=== PATIENT | female | born 1940 | race Caucasian/White ===

== ENCOUNTER 2018-03-25 21:25 | Emergency (ER) | payer MEDICARE ==
[~2018-03-25] VITALS: Ht 165.1 cm; Wt 112.4 kg
[~2018-03-25 21:25] MED LIST: AMLODIPINE BESY10 MG PO; ASPIRIN EC81 MG PO; ATENOLOL-CHLOR1 EAC1 PO; CEFPODOXIME PR200 MG PO; CLONIDINE HCL0.1 MG PO; DILTIAZEM 24HR120 MG PO; ELIQUIS5 MG PO; HUMULIN R100 UNIT/1 INJ; HYDROCHLOROTHIA25 MG PO; LANTUS SOL100 UNIT/1 SUB-Q; LEVOFLOXACIN500 MG PO; LEVOTHYROXINE88 MCG PO; LOSARTAN POTASS25 MG PO; METFORMIN HCL1000 MG PO; METFORMIN HCL500 MG PO; METOPROLOL SUCC25 MG PO; METOPROLOL TART50 MG PO; NOVOLOG FL100 UNIT/1 SUB-Q; OMEPRAZOLE20 MG PO
--- NOTE | 2018-03-26 19:25 | EKG ---
[facility] [address] [facility] [place] [address] Signed Atrial fibrillation with rapid ventricular response Septal infarct (cited on or before 04-AUG-2016) ST \T\ T wave abnormality, consider lateral ischemia Abnormal ECG When compared with ECG of 04-AUG-2016 12:42, Inverted T waves have replaced nonspecific T wave abnormality in Lateral leads Confirmed by HEMA ESPINOZA MD ([id number]) on 03/26/2018 7:25:24 PM Electronically Signed By: HEMA ESPINOZA MD 03/26/18 1925 PATIENT NAME: KAREN LAZARO Electrocardiogram DATE OF : 42 PHYSICIAN: HEMA ESPINOZA MD REPORT #: [id number] REPORT IS CONFIDENTIAL AND NOT TO BE RELEASED WITHOUT AUTHORIZATION
--- NOTE | 2018-03-26 19:25 | EKG ---
[facility] [address] [place] [address] Signed Normal sinus rhythm Possible Left atrial enlargement Anteroseptal infarct (cited on or before 04-AUG-2016) T wave abnormality, consider lateral ischemia Abnormal ECG When compared with ECG of 25-MAR-2018 21:29, (Unconfirmed) Sinus rhythm has replaced Atrial fibrillation Vent. rate has decreased BY [address] no longer depressed in Lateral leads Confirmed by HEMA ESPINOZA MD ([id number]) on 03/26/2018 7:25:37 PM Electronically Signed By: HEMA ESPINOZA MD 03/26/18 1925 PATIENT NAME: KAREN LAZARO Electrocardiogram DATE OF : 42 PHYSICIAN: HEMA ESPINOZA MD REPORT #: [id number] REPORT IS CONFIDENTIAL AND NOT TO BE RELEASED WITHOUT AUTHORIZATION
== END 2018-03-25 23:45 | disposition home or self-care (01) ==
LOC: ED 21:25
DX: I48.0 Paroxysmal atrial fibrillation (principal); E11.9 Type 2 diabetes mellitus without complications; I10 Essential (primary) hypertension; Z88.8 Allergy status to other drugs, medicaments and biological substances; Z88.6 Allergy status to analgesic agent; Z79.4 Long term (current) use of insulin; Z79.899 Other long term (current) drug therapy; Z91.14 Patient's other noncompliance with medication regimen
CPT/HCPCS: 36415; 71045; 80053; 84484; 85025; 93005; 93010; 96374; 99291

== ENCOUNTER 2019-03-09 12:23 | Emergency (ER) | payer MEDICARE ==
[~2019-03-09] VITALS: Ht 165.1 cm; Wt 109.0 kg
[2019-03-09] MEDS ORDERED: ELIQUIS5 MG PO (18:12)
[2019-03-09] MEDS ORDERED: TOPROL XL50 MG PO (18:12)
--- NOTE | 2019-03-10 16:33 | EKG ---
[facility] [address] [facility] [place] [address] Signed Atrial fibrillation with rapid ventricular response Septal infarct (cited on or before 04-AUG-2016) Abnormal ECG When compared with ECG of 25-MAR-2018 22:38, Atrial fibrillation has replaced Sinus rhythm Vent. rate has increased BY 50 BPM Questionable change in initial forces of Anterior leads ST now depressed in Lateral leads Confirmed by ARMIN ROJAS DO ([id number]) on 03/10/2019 4:33:10 PM Electronically Signed By: ARMIN ROJAS DO 03/10/19 1633 PATIENT NAME: KAREN LAZARO Electrocardiogram DATE OF : 42 PHYSICIAN: ARMIN ROJAS DO REPORT #: [id number] REPORT IS CONFIDENTIAL AND NOT TO BE RELEASED WITHOUT AUTHORIZATION
== END 2019-03-09 18:20 | disposition home or self-care (01) ==
LOC: ED 12:23
DX: I48.91 Unspecified atrial fibrillation (principal); E11.9 Type 2 diabetes mellitus without complications; I10 Essential (primary) hypertension; E03.9 Hypothyroidism, unspecified; Z88.8 Allergy status to other drugs, medicaments and biological substances; Z88.6 Allergy status to analgesic agent; Z79.899 Other long term (current) drug therapy; Z79.4 Long term (current) use of insulin
CPT/HCPCS: 71045; 80053; 83735; 83880; 84443; 84484; 85025; 93005; 93010; 96374; 96376; 99285-25; J2704

== ENCOUNTER 2019-04-20 12:13 | Observation (INO) | payer MEDICARE ==
[~2019-04-20] VITALS: Ht 165.1 cm; Wt 109.0 kg
[~2019-04-20 12:13] MED LIST changes: +COZAAR100 MG PO; +GLUCOPHAGE500 MG PO; -METFORMIN HCL1000 MG PO; +TOPROL XL50 MG PO
--- NOTE | 2019-04-20 16:19 | EKG ---
[facility] [address] [place] [address] Signed Sinus rhythm with premature atrial complexes Otherwise normal ECG When compared with ECG of 09-MAR-2019 12:28, Sinus rhythm has replaced Atrial fibrillation Vent. rate has decreased BY 63 BPM Confirmed by CASIMIRO DOWNING MD ([id number]) on 04/20/2019 4:19:16 PM Electronically Signed By: CASIMIRO DOWNING MD 04/20/19 1619 PATIENT NAME: KAREN LAZARO Electrocardiogram DATE OF : 42 PHYSICIAN: CASIMIRO DOWNING MD REPORT #: [id number] REPORT IS CONFIDENTIAL AND NOT TO BE RELEASED WITHOUT AUTHORIZATION
--- NOTE | 2019-04-20 16:34 | NUR ---
NEW ADMIT TO THE FLOOR. PT AWAKE, ALERT AND ORIENTED X3. HOB ELEVATED. PT'S VS ARE STABLE. PT IS ON 2L OXYGEN, SAT LEVEL 95%. PT DENIES CHEST PAIN AND SOB. TELE PLACED. PT DENIES PAIN. NEURO CHECK COMPLETED, NO NOTABLE DEFICITS. PT REPORTS FULL SENSATION TO EXT. PT'S SPEECH IS APPROPRIATE. ORIENTED PT TO ROOM AND CALL LIGHT. NO NEEDS AT THIS TIME. EDUCATION PROVIDED REGARDING SAFETY AND PLAN OF CARE. PT RECEPTIVE TO PLAN OF CARE AT THIS TIME.
[2019-04-20] MEDS ORDERED: TOPROL XL25 MG PO (17:05)
[2019-04-20] MEDS ORDERED: NOVOLIN 70100 UNIT/1 SUB-Q (17:40)
--- NOTE | 2019-04-20 17:43 | NUR ---
Medications reconciled using pharmacy records and patient interview. Her medications have had several changes recently.
--- NOTE | 2019-04-20 17:56 | NUR ---
PT A&OX3. NEURO CHECKS; NO NOTABLE DEFICITS. NAUSEA AND DIZZINESS IMPROVED. NOT YET OUT OF BED. AMBULATE AD GENIE ORDER. BS CHECKS. TOLERATING 60G CARBS. CALLS APPROP.
--- NOTE | 2019-04-20 20:00 | NUR ---
PATIENT IS SITTING UP IN THE CHAIR, NO C/O PAIN, CALL LIGHT IN REACH, PATIENT WATCHING TV.
--- NOTE | 2019-04-20 22:00 | NUR ---
PATIENT IN BED WATCING TV.
--- NOTE | 2019-04-20 23:37 | NUR ---
PATIENT RESTING QUIETLY ON LEFT SIDE, RESPIRATIONS REGULAR AND EVEN AT 18, EYES CLOSED.
--- NOTE | 2019-04-21 00:46 | NUR ---
PATIENT RESTING SUPINE, EYES CLOSED, RESPIRATIONS REGULAR AND EVEN AT 16, CALL LIGHT IN REACH.
--- NOTE | 2019-04-21 02:50 | NUR ---
PATIENT RESTING QUIETLY SUPINE RESPIRATIONS REGULAR AND EVEN, EYES CLOSED, CALL LIGHT IN REACH.
--- NOTE | 2019-04-21 05:00 | NUR ---
ONCE PATIENT GOT INTO BED FOR THE NIGHT SHE HAS MOSTLY RESTED ALL NIGHT EYES CLOSED RESPIRATIONS REGULAR AND EVEN. PATTIENT HAD SAID SHE FEELLS PRETTY MUCH BACK TO HERSELF. LAB DRAAWING BLOOD AT THIS TIME.
--- NOTE | 2019-04-21 08:15 | NUR ---
PT RESTING SUPINE IN BED ALERT TO VOICE, VS'S TAKEN AND AM MEDS ADMINISTERED, ASSESSMENT COMPLETED. CALL LIGHT AND H20 IN REACH. PT STATES "I'M FEELING MUCH BETTER TODAY. WHAT TIME DO PT'S USUALLY GET DISCHARGED BECAUSE I FEEL LIKE I AM READY TO GO". PT INFORMED THAT THE DOCTOR WILL SEE HER THIS MORNING AND GO OVER POC AND POSSIBILITY OF DISCHARGE WITH HER AT THAT TIME. CALL LIGHT AND H20 IN REACH AND PT DENIES FURTHER NEEDS/CONCERNS.
--- NOTE | 2019-04-21 10:49 | NUR ---
EARLIER THIS MORNING I DID HER BLOOD SUGAR CHECK. ORDERED HER BREAKFAST.
--- NOTE | 2019-04-21 10:52 | NUR ---
PATIENT TOOK A SHOWER AFTER BREAKFAST.
--- NOTE | 2019-04-21 11:15 | NUR ---
Pt sitting up in chair watching tv. pt denies symptoms, concerns or needs at this time. call light and h20 in reach.
--- NOTE | 2019-04-21 12:17 | NUR ---
DID BLOOD SUGAR CHECK. PATIENT SITTING UP IN CHAIR EATING HER LUNCH.
--- NOTE | 2019-04-21 14:53 | NUR ---
PT RESTING ON LEFT LATERAL SIDE IN BED, PT REQUESTED AND RECEIVED FRESH ICE WATER AND CRANBERRY JUICE. ASSESSMENT COMPLETED. PT APPEARS TO REMAIN IN GOOD SPIRITS AND AKNOWLEDGED THAT HER ECHO IS SCHEDULED FOR TOMORROW. CALL LIGHT, H2O IN REACH.
--- NOTE | 2019-04-21 17:50 | NUR ---
PT SITTING UP IN CHAIR WATCHING TV. PT APPEARS TO REMAIN IN GOOD SPIRITS AND DENIES FEELING ANY PALPITTATIONS, DIZZINESS OR ANY OTHER SYMPTOMS. CALL LIGHT AND H20 IN REACH AND NO NEEDS/CONCERNS VOICED.
--- NOTE | 2019-04-21 18:20 | NUR ---
PT APPEARED TO HAVE A GOOD DAY AND REMAINED ASYMPTOMATIC THROUGHOUT THIS SHIFT. PT TOLERATING ORAL DIET WELL. VQS. IV TO LEFT WRIST REMAINS PATENT AND SL'D. PT REMAINS A/O X4, VSS, CALLS APPROPRIATLEY. ECHO SCHEDULED FOR AM THEN PROBABLE DISCHARGE. PT IS INDIPENDANT IN ROOM AND DENIES ANY DIZZINESS WITH AMBULATION.
--- NOTE | 2019-04-21 19:44 | NUR ---
PATIENT SITTING IN BED WATCHING TV AT THIS TIME. NO REPORTED NEEDS. CALL LIGHT IN REACH.
--- NOTE | 2019-04-21 21:04 | NUR ---
CALLED AND HE SAID IT WAS OK TO HOLD EVENING BLOOD SUGAR CHECK.
--- NOTE | 2019-04-21 22:09 | NUR ---
CALLED DR.PITEO SCHWARTZ PATIENT'S HEART RATE OF 57 AND THE 50MG OF METOPROLOL SHE IS SUPPOSED TO GET. ORDER GIVEN TO ONLY GIVE HALF A TAB. 25MG TONIGHT.
--- NOTE | 2019-04-22 00:22 | NUR ---
PATIENT RESTING QUIETLY ON HER LEFT SIDE, EYES CLOSED, RESPIRATIONS REGULAR AND EVEN AT 16.
--- NOTE | 2019-04-22 02:40 | NUR ---
PATIENT RESTING QUIETLY IN FOWLERS POSITION ON HER CPAP WITH RESPIRATIONS OF 16, EYES CLOSED. CALL LIGHT IS IN REACH.
--- NOTE | 2019-04-22 06:34 | NUR ---
VITALS AND I&OS DONE AND CHARTED. BEDSIDE TABLE AND CALL LIGHT IN REACH. PT NEEDS NOTHING MORE AT THIS TIME.
--- NOTE | 2019-04-22 06:54 | NUR ---
PATIENT HAS NOT HAD ANY ISSUES THROUGH THE NIGHT AND HAS RESTED WELL. NO COMPLAINTS.
--- NOTE | 2019-04-22 07:05 | NUR ---
PT RESTING RECLINED IN CHAIR WITH EYES CLOSED ADN RESPIRATIONS EVEN AND UNLABORED. PT APPEARS TO BE SLEEPING COMFORTABLT. BEDSIDE REPORT RECEIVED FROM CJ KIM.
--- NOTE | 2019-04-22 09:21 | NUR ---
PT SITTING UP IN CHAIR WATCHING TV, STATES SHE SLEPT WELL AND THAT SHE TOILERATED HER BREAKFAST WELL. ASSESSMENT COMPLETED AND AM MEDS ADMINISTERED. PT EXPRESSES EAGERNESS TO DISCHARGE AND INQUIRED ON WHEN THE MD WOULD BE IN TO SEE HER. PT ASSURED THAT MD WILL BE IN TO DO ROUNDS THIS AM AND THAT WE ARE STILL AWAITING THE DICTATION FOR THE ECHOCARDIOGRAM THAT WAS RECENTLY COMPLETED. CALL LIGHT AND H2O IN REACH AND PT DENIES FURHTER NEEDS/CONCERNS.
--- NOTE | 2019-04-22 11:58 | NUR ---
PT RESTING RECLINED IN CHAIR WITH EYES CLOSED AND RESPIRATIONS EVEN AND UNLABORED. PT APPEARS TO BE SLEEPING COMFORTABLY. CALL LIGHT AND H20 IN REACH.
--- NOTE | 2019-04-22 12:23 | NUR ---
PT SITTING IN CHAIR, WAITING FOR DC. S.SON PRESENT TO TAKE PT HOME. PT EXPRESSED HER LIFE HAS HAD SOME DIFFICULTIES LATELY AND STRESS IS PRESENT. WE HAD A MOMENT TO DEBRIEF, EXTENDED A BLESSING. PT THANKED ME FOR THE TIME, WILL FOLLOW NEEDED
--- NOTE | 2019-04-22 14:04 | NUR ---
PATIENT BLOOD SUGAR CHECK WAS DONE FOR BREAKFAST AND LUNCH. ALSO AROUND 1230 I ODERED HER LUNCH FOR HER.
== END 2019-04-22 14:17 | disposition home or self-care (01) ==
LOC: ED 12:13 → MS 12:15
PROVIDERS: ADMIT Internal Medicine
DX: R55 Syncope and collapse (principal); E11.9 Type 2 diabetes mellitus without complications; I10 Essential (primary) hypertension; E03.9 Hypothyroidism, unspecified; R00.1 Bradycardia, unspecified; I48.91 Unspecified atrial fibrillation; Z88.8 Allergy status to other drugs, medicaments and biological substances; Z79.4 Long term (current) use of insulin; Z79.899 Other long term (current) drug therapy
CPT/HCPCS: 36415; 70450; 71045; 80048; 80053; 84484; 85025; 85610; 93005; 93010; 93306; 96361; 96374; 96375; 99285-25; G0378; J2405; J2550; J7040

== ENCOUNTER 2021-04-27 04:28 | Inpatient (IN) | payer MEDICARE ==
[~2021-04-27] VITALS: Ht 165.1 cm; Wt 109.4 kg
[~2021-04-27 04:28] MED LIST changes: +NOVOLIN 70100 UNIT/1 SUB-Q; +TOPROL XL25 MG PO
[2021-04-27] MEDS ORDERED: LEVOTHYROXINE100 MCG PO (05:13)
[2021-04-27] MEDS ORDERED: CARTIA XT240 MG PO (05:15)
[2021-04-27] MEDS ORDERED: ESCITALOPRAM OXA5 MG PO (05:16)
--- NOTE | 2021-04-27 10:48 | NUR ---
PT ABLE TO STAND AND PIVOT TO GET FROM GURNEY TO BED. PT IS ALERT AND ORIENTED X4, HOWEVER REPORTS FATIGUE. PT DENIES PAIN, NAUSEA, AND SOB. PT REFUSES FOOD AT THIS TIME, DOES MARILYNN SIPS OF ICE WATER. VITALS ARE ALL WNL. IV SITE IN LEFT HAND IS INTACT, NO REDNESS OR SWELLING NOTED, FLUSHES EASILY, PT DENIES PAIN WITH FLUSH.
--- NOTE | 2021-04-27 13:10 | NUR ---
PT ACCIDENTALLY PULLED OUT HER FIELD START IV, SMALL AMOUNT OF BLEEDING NOTED. PT SITE DRESSED. PT REMAINS CALM, VITALS ARE WNL. PT REFUSES LUNCH AT THIS TIME. PT DENIES PAIN AND SOB.
--- NOTE | 2021-04-27 14:20 | NUR ---
PT UP AND AMBLUATED TO THE BATHROOM WITH ONE PERSON STANDBY ASSIST. PT INDEPENDENT IN BATHROOM. PT REPORTS ONE BOUT OF LOOSE STOOL AND UNMEASURED VOID. PT BACK TO BED, MARILYNN ACTIVITY WELL WITH NO SUPPLIMENTAL O2. 02 PLACED AT 2L AGAIN IN CASE PT FALLS ASLEEP AND FOR SUPPORT.
--- NOTE | 2021-04-27 17:40 | NUR ---
PT IS AWAKE AND ALERT. IV STARTED IN PT RT HAND, PT MARILYNN WELL, FLUSHES AND PULLS BACK BLOOD EASILY. REMDESIVER STARTED, WITH 1 L LR BOLUS TO FOLLOW. PT DENIES PAIN, NAUSEA, AND SOB AT THIS TIME. PT REPORTS "I JUST GET WORN OUT REALLY EASY". DINNER ORDERED AND GIVEN TO PT.
--- NOTE | 2021-04-27 18:50 | NUR ---
PT IS AWAKE AND ALERT X4, LAYING IN BED WATCHIN TV. PT ABLE TO MARILYNN 75% OF DINNER. IV SITE IS INTACT, NO REDNESS OR SWELLING NOTED, FLUIDS INFUSING WELL. PT VITALS ARE WNL.
--- NOTE | 2021-04-27 21:22 | NUR ---
RESTING IN BED, NO C/O. RESP UNLABORED. PT RQUESTING JELLO, GIVEN SUGAR FREE JELLO. BS 340, EXPLAINED WAS ELEVATED DUE TO STRESS OF ILLNESS AND USE OF DECADRON. SLEPT MUCH OF AFTERNOON AND NOW WATCHING TV.
--- NOTE | 2021-04-27 23:38 | NUR ---
STATES HAS BEEN UNABLE TO SLEEP. GIVEN ANOTHER SNACK OF SUGAR FREE JELLO. DR ESPINOZA WAS INFORMED EARLIER OF ELEVATED BS, STATES HE WILL CHANGE SLIDING SCALE TOMORROW. PT DENIES NEED TO VOID.
--- NOTE | 2021-04-28 02:05 | NUR ---
APEARS TO BE RESTING, EYES CLOSED, HR 50'S.
--- NOTE | 2021-04-28 04:00 | NUR ---
ASSESSMENT DEFERED AT THIS TIME. PT RESTING
--- NOTE | 2021-04-28 05:45 | NUR ---
IN FOR MEDS AND TO DRAW LABS. STATES DID NOT SLEEP. DID GET UP ON OWN TO BSC TWICE TO VOID. STATES IS HUNGRY THIS AM.
--- NOTE | 2021-04-28 08:40 | NUR ---
PT IS AWAKE AND ALERT X4. SHE DENIES PAIN, NAUSEA, AND SOB. PT IS SITTING UP IN THE BED. BREAKFAST SERVED TO PT. IV SITE IS INTACT, NO REDNESS OR SWELLING NOTED, PT DENIES PAIN WITH FLUSH. PT ABLE TO TAKE ALL PO MEDS EASILY. PT ABLE TO WASH HER HANDS AND FACE WITH A WARM WASH CLOTH. PT GIVEN SUPPLIES FOR ORAL CARE, SHE STATES SHE IS ABLE TO DO THIS INDEPENDENTLY. PT ABLE TO GET UP TO BEDSIDE COMMODE INDEPENDENTLY TO VOID. VITALS ARE WNL.
--- NOTE | 2021-04-28 10:11 | NUR ---
CALLED PT DAUGHTER PADILLA TO UPDATE ON PT STATUS. ALL QUESTIONS ANSWERED. [phone]
--- NOTE | 2021-04-28 11:30 | NUR ---
INTO PT ROOM TO START IV FLUIDS. PT IS SLEEPING LIGHTLY, AND WAKES EASILY. PT TAKEN OFF GUNNER'S MATE AT THIS TIME AND BACK ON SPO2 MONIOR DUE TO DESATURATION WITH SLEEP TO 88%. PT PLACED BACK ON 1L O2 FOR SUPPORT VIA NC. LUNCH ORDER TAKEN FOR PT. ICE WATER FILLED UP. IV SITE IS INTACT, NO REDNESS OR SWELLING NOTED, FLUSH AND FLUIDS INFUSE EASILY.
--- NOTE | 2021-04-28 12:40 | NUR ---
PT SITTING UP IN BED TALKING ON THE PHONE WITH FAMILY. IV SITE IS INTACT, NO REDNESS OR SWELLING NOTED, FLUIDS INFUSING. PT LUNCH DELIVERED. PT DENIES NAUSEA, PAIN, AND SOB. SHE IS ABLE TO MARILYNN EATING LUNCH. PT IS ALERT AND OREINTED X4. 1L O2 VIA NC IN PLACE, 02 SATS 93-95%. PT HAS CALL LIGHT WITHIN REACH, AND IS ABLE TO USE IT WHEN NEEDED. PT STATES "MAYBE AFTER I EAT MY LUNCH I WILL GET UP TO THE CHAIR". FRESH ICE WATER BROUGHT TO PT. PT DENIES ANY OTHER NEEDS AT THIS TIME.
--- NOTE | 2021-04-28 14:55 | NUR ---
PT UP TO THE CHIAR IN ROOM INDEPENDENTLY. ALL LINENS CHANGED ON BED. PT IS WATCHING TV AND TALKING ON THE PHONE WITH FAMILY. PT ABLE TO MARILYNN 75% OF LUNCH, SHE DENIES PAIN, NAUSEA, AND SOB. PT IS COOPERATIVE AND POLITE, ALERT AND ORIENTED X4.
--- NOTE | 2021-04-28 18:15 | NUR ---
PT UP FROM CHAIR TO BATHROOM TO DO OWN CARES. PT IS INDEPENDENT WHEN GIVEN SUPPLIES. CLEAN GOWN IN PLACE. PT THEN AMBULATES BACK TO BED INDEPENDENTLY. PT MARILYNN ACTIVITY VERY WELL COMPARED TO PRIOR DAY SHIFT. PT DINNER SERVED & INSULIN GIVEN. PT DENIES PAIN, NAUSEA, AND SOB. VITALS ARE WNL. PT ON ROOM DURING ACTIVITY AND REMAINS ON ROOM AIR AFTER HER O2 SATS ARE 95%
--- NOTE | 2021-04-28 19:06 | NUR ---
22 G IV STARTED IN LEFT WRIST, FLUSHES EASILY, RETURNS BLOOD, PT MARILYNN WELL. REMDESIVER STARTED AT THIS SITE. PT STILL ON RA O2 SAT IS 92-94% AT THIS TIME. PT SITTING UP IN BED EATING DINNER.
--- NOTE | 2021-04-28 21:03 | NUR ---
AWAKE, RESTING IN BED, STATES IS NOT SLEEPY. GIVEN 3MG MELATONIN FOR SLEEP. BS 333, GIVEN 10 UNITS INSULIN. ABLE TO USE BSC ON OWN. PLACED ON O2 1L NC FOR SLEEP. GIVEN WARM BLANKET PER REQUEST, IS AFEBRILE.
--- NOTE | 2021-04-28 23:00 | NUR ---
RESTING, SATS MID 90'S HR 50'S.
--- NOTE | 2021-04-29 00:20 | NUR ---
PT SLEEPING, SNORING SOFTLY.
--- NOTE | 2021-04-29 02:20 | NUR ---
PT CONT TO SLEEP. SATS MID 90'S.
--- NOTE | 2021-04-29 04:25 | NUR ---
IN TO HANG NEW IV BAG. PT CONT TO SLEEP.
--- NOTE | 2021-04-29 05:30 | NUR ---
IN TO DRAW LAB AND DO ASSESSMENT. AWAKE ALERT NO C/O. STATES SLEPT BETTER. ASSESSMENT DONE. PT HAS BEEN ABLE TO GET SELF UP TO BSC ON OWN TO VOID. PT'S SON IN ROOM. PT'S SON IS AWAITNG A RIDE HOME AFTER BEING TREATED FOR COVID IN THE ED.
--- NOTE | 2021-04-29 06:45 | NUR ---
CALLED BY PT, HER SON REQUESTING TO SPEAK TO A NURSE. HER SON STATES HE IS FEELING EVEN WORSE THAN WHEN HE WAS SEEN IN THE ED. OFFERED TO TAKE HIM BACK TO THE ED, EXPLAINING THAT I WAS UNABLE TO TREAT HIM HE IS NOT A PATIENT. HE ALSO STATES HE HAS NO WAY TO GET HOME AT THIS TIME. BROOD STATION MANAGER UPDATED.
--- NOTE | 2021-04-29 07:30 | NUR ---
REPORT RECIEVED. PATIENT IS RESTFUL IN BED. NO DISTRESS NOTED.
--- NOTE | 2021-04-29 08:20 | NUR ---
ASSESSMENT DONE. ACCUCHECK-311. TOTAL OF 13 UNITS OF HUMALOG INSULIN GIVEN. LANTUS 15 UNITS GIVEN. DENIES PAIN OR NAUSEA.
--- NOTE | 2021-04-29 08:48 | NUR ---
SITTING UP IN BED TO EAT BREAKFAST.
--- NOTE | 2021-04-29 09:30 | NUR ---
PATIENT IS ASLEEP. O2 TO RA, WILL CONTINUE TO MONIOR SATS.
--- NOTE | 2021-04-29 10:00 | NUR ---
RESTING AT THIS TIME, O2 AT 1 L REAPPLIED SATS 88-90 ON RA. PATIENT REMAINS IN BED SLEEPING.
--- NOTE | 2021-04-29 11:00 | NUR ---
PHYS THERAPY HERE TO WORK WITH PATIENT. RT WILL EVALUATE FOR HOME O2. SON UPDATED VIA PHONE.
--- NOTE | 2021-04-29 11:33 | NUR ---
SITTING UP IN CHAIR OFF O2.
--- NOTE | 2021-04-29 12:20 | NUR ---
accucheck-370, total of 15 UNITS OF INSULIN GIVEN. ASSESSMENT UNCHANGED. IVF PATENT. DENEIS PAIN. READY TO EAT LUNCH WHILE SITTING IN CHAIR.
--- NOTE | 2021-04-29 13:45 | NUR ---
DR. ESPINOZA HERE TO SEE PATIENT, PATIENT WILL REMAIN IN HOSPITAL FOR ANOTHER DAY.
--- NOTE | 2021-04-29 14:26 | NUR ---
UNABLE TO VISIT WITH PT PERSONALLY DUE TO PRECAUTIONS. WILL FOLLOW ABLE
--- NOTE | 2021-04-29 15:30 | NUR ---
UP TO BR. IS STABLE ON FEET. UNABLE TO HAVE BM. DAILY CARES GIVEN WHILE PATIENT IN BR. TOLERATED WELL.
--- NOTE | 2021-04-29 16:00 | NUR ---
ASSESSMENT DONE. NO CHANGES. BACK TO BED. REMAINS ON RA.
--- NOTE | 2021-04-29 16:42 | NUR ---
SPOKE WITH PATIENT BY PHONE. PATIENT STATES SHE IS FEELING BETTER, "JUST VERY TIRED AND WEAK". SHE LIVES IN [place] WITH HER WHO IS ALSO IN THE HOSPITAL ADMITTED FOR COVID. SHE STATES HER SON AND GRANDSON LIVE WITH THEM. THEY ARE THERE MOST OF THE TIME. SON IS NOT WORKING AT THIS TIME. SHE STATES HER HAS BEEN HAVING WEAKNESS AND FALLS FOR SOME TIME. HE HAS BEEN BEING WORKED UP BY [facility]. SHE STATES SHE CHANGED HER PCP TO DR KARISHMA ARCE IN [facility] BECAUSE THAT IS WHERE GOES AND IT WAS BETTER TO HAVE BOTH THEIR PCPS IN ONE TOWN. SHE STATES SHE DRIVES. ONLY DME SHE USES IS A CPAP, NO OXYGEN. SHE IS RETIRED. THERE ARE 4 STEPS INTO HOME WITH NONE INSIDE. THERE ARE 2 BATHROOMS, ONE WITH GRAB BARS INTO SHOWER AND A SHOWER CHAIR. 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 SHE STATES HER SON AND GRANDSON HAVE BEEN HELPING THEM MORE SINCE THEY BECAME SICK. SHE PREFERS DISCHARGE HOME. HER SON WILL PICK THEM UP. SHE STATES SHE WOULD BE CONCERNED ABOUT COSTLY MEDICATIONS AND COPAYS. SHE STATES THEY GET FOOD FROM A FOOD BANK AND THAT THEY SPOKE WITH HER ABOUT LOOKING INTO HELPING WITH ELECTRIC. SHE IS OPEN TO A FOLLOW UP CALL FROM [facility]W. WE DISCUSSED OXYGEN AT HOME IF NEEDED. ALL QUESTIONS ANSWERED.
--- NOTE | 2021-04-29 17:18 | NUR ---
MED REC COMPLETE
--- NOTE | 2021-04-29 17:30 | NUR ---
ACCUCHECK-383. TOTAL OF 17 UNITS INSULIN GIVEN. SITTING UP IN BED TO EAT DINNER. DR. ESPINOZA AWARE OF ACCUCHECK VALUE. NO FUTHER ODERS. YANI SANCHEZ.
--- NOTE | 2021-04-29 19:06 | NUR ---
NO CHANGES, REPORT TO NEXT SHIFT.
--- NOTE | 2021-04-29 20:19 | NUR ---
RESTING IN BED WITH SLEEP MASK IN PLACE.
--- NOTE | 2021-04-29 21:12 | NUR ---
AWAKENED FOR ASSESMENT AND TO CHECK BLOOD SUGAR. BS 324 AND GIVEN 8 UNITS INSULIN. HAS NO C/O. STATES HAS GOTTEN UP EARLIER TO VOID, DENIES NEED TO VOID NOW. READY FOR SLEEP.
--- NOTE | 2021-04-29 23:10 | NUR ---
PT SLEEPING RESP REGULAR.
--- NOTE | 2021-04-30 01:39 | NUR ---
CONT TO SLEEP, RESP REG.
--- NOTE | 2021-04-30 03:15 | NUR ---
NO CHANGE, PT CONT TO SLEEP.
--- NOTE | 2021-04-30 05:59 | NUR ---
AWAKENS EASILY. STATES SLEPT WELL BUT WAS UP TO BATHROOM TO VOID X3. NO SOB WITH ACTIVITY. IS LOOKING FORWARD TO GOING HOME LATER TODAY.
--- NOTE | 2021-04-30 08:46 | NUR ---
IN PATIENT'S ROOM TO GIVE MEDICATIONS, ASSESSMENT, AND VITALS. PT'S BREAKFAST ALSO BROUGHT INTO ROOM. PT REPORTS, "I FEEL GREAT! I'M READY TO GO HOME TODAY." ASSESSMENT COMPLETE. SP02I S 96% ON ROOM AIR. PT GIVEN SS INSULIN AND LANTUS. CBG 309 THIS AM. DISCUSSED WTIH PATIENT THE IMPORTANCE OF MOVING AROUND CONSISTENTLY ONCE SHE DISCHARGES HOME. PT'S CARDIZEM HELD FOR THE MOMENT DUE TO HR BEING 49-53. PT HAS A LOUD MURMUR HEARD THROUGHOUT HER CHEST WALL. PT NOW ON THE PHONE WITH HER WHO IS ON MED/SURG. WILL CONTINUE TO MONITR. PT IS EAGER TO D/C HOME TODAY.
--- NOTE | 2021-04-30 08:55 | NUR ---
Per [address] Torres pt will dc following PT. Called [facility] and their drivers are booked. Called and spoke with pt's grandson. He states he will pick grandparents up today. I will call him back with a discharge time. Grandson is Dar [phone].
--- NOTE | 2021-04-30 11:10 | NUR ---
DR. ESPINOZA IN ROOM TO SEE PATIENT AT THIS TIME. PLAN IS FOR PATIENT TO D/C HOME.
--- NOTE | 2021-04-30 11:15 | NUR ---
Spoke with Dr. Torres. Pt will be ready for dc at 1300. Called to speak with grandson and reached pt's son Chino. He states he will pick pt up. Discussed he is covid + and we will bring pt to ER entrance for transport home. Spoke with PT and pt did not require PT.
--- NOTE | 2021-04-30 11:43 | NUR ---
PATIENT BEING D/C HOME. COORDINATING WITH PT'S WELL HE IS OVER ON MED/SURG AND WILL BE D/C ALSO. FOLLOW UP APPT MADE PER CATEGORY CONSULTANT. PT WILL HAVE LAB DRAW AT 05/06/21 AT [facility] - RESULTS TO DR. ARCE IN [place], [place].
--- NOTE | 2021-04-30 12:26 | NUR ---
DUE TO PRECAUTIONS I AM UNABLE TO VISIT AT THIS TIME. WILL FOLLOW
== END 2021-04-30 13:15 | disposition home or self-care (01) | DRG 177 ==
LOC: ED 04:28 → CCU 10:24
PROVIDERS: ADMIT Internal Medicine; ATTEND Internal Medicine
PROC: XW033E5 Introduction of Remdesivir Anti-infective into Peripheral Vein, Percutaneous Approach, New Technology Group 5 (ICD-10-PCS; principal; 2021-04-27)
DX: U07.1 COVID-19 (principal); J12.82 Pneumonia due to coronavirus disease 2019; J12.81 Pneumonia due to SARS-associated coronavirus; J96.01 Acute respiratory failure with hypoxia; N17.9 Acute kidney failure, unspecified; E11.9 Type 2 diabetes mellitus without complications; I10 Essential (primary) hypertension; E03.9 Hypothyroidism, unspecified; F39 Unspecified mood [affective] disorder; I48.0 Paroxysmal atrial fibrillation; Z88.8 Allergy status to other drugs, medicaments and biological substances; Z79.899 Other long term (current) drug therapy; Z79.4 Long term (current) use of insulin
CPT/HCPCS: 71045; 80048; 80053; 83735; 85025; 96374; 97161; 99285-25; C9803; J1650; J1815; J2405; J7050; J7121; J8540; U0003

== ENCOUNTER 2021-05-26 20:14 | Inpatient (IN) | payer MEDICARE ==
[~2021-05-26] VITALS: Ht 165.1 cm; Wt 109.0 kg
[~2021-05-26 20:14] MED LIST changes: +CARTIA XT240 MG PO; +ESCITALOPRAM OXA5 MG PO; +LEVOTHYROXINE100 MCG PO
--- OUTSIDE RECORDS SUMMARY | 2021-05-26 20:18 | XMS ---
PreManage Notification: KAREN LAZARO [employer] Developer Events No recent Security Events currently on file CRITERIA MET - ED - Positive COVID-19 Lab Result - [facility] - 2 Visits in 30 Days CARE PROVIDERS PADMAJA MONTILLA Internal Medicine Current PHONE: Unknown Summer has no Care Guidelines for this patient. Rob VISIT COUNT (12 MO.) 2 Billy Reilly 2 [facility] TOTAL 4 NOTE: Visits indicate total known visits. ED/UCC VISIT TRACKING (12 MO.) 05/26/2021 20:14 [facility] [place] TYPE: Emergency COMPLAINT: - SOB 04/27/2021 04:29 [facility] [place] TYPE: Emergency COMPLAINT: - WEAKNESS 11/01/2020 11:44 Billy [facility] [place] TYPE: Emergency DIAGNOSES: - Pain in left arm - Left Arm Pain - Arm Pain 09/14/2020 14:03 Billy [facility] [place] TYPE: Emergency DIAGNOSES: - Other chest pain - chest pain - Dyspnea, unspecified - Chronic kidney disease, stage 4 (severe) INPATIENT VISIT TRACKING (12 MO.) 04/27/2021 10:24 [facility]EL [facility] [place] TYPE: Critical Care COMPLAINT: - COVID PNEUMONIA DIAGNOSES: - Other marine oil terminal superintendent (current) drug therapy - Type 2 diabetes mellitus without complications - Pneumonia due to SARS-associated coronavirus - Allergy status to other drugs, medicaments and biological substances - Unspecified mood [affective] disorder - COVID-19 - Acute kidney failure, unspecified - termite control service representative (current) use of insulin - Paroxysmal atrial fibrillation - Essential (primary) hypertension - Hypothyroidism, unspecified - Acute respiratory failure with hypoxia [email or web address]
--- NOTE | 2021-05-27 00:34 | NUR ---
pt arrived at 2330 from ed via gourney, walked to bed, juanita needing to urinate. iv RH. on room air, sob with exertion noted. lungs dim at bases R more dim than L, not cleared with cough. will place a CPOX as per orders. Tele#[address] afib readings Irregular heart rate, denies CO or SOB. Pt uses a CPAP at home, her children will bring in am. unable to remember all her meds, thinks she takes more than wahts in our admit forms. will ask family in am. stated that there is nobody at home right know as her disbled and son are going to [place] to pick her grandson that she raised. Red under breast and pannus, dried and towel applied between folds. edema LE 1+. CBG 416, received scheduled 16u semglee, ate 1/2 sandwich. Repositioned in bed. Oriented to room and procedures. compliant, alert and oriented, hob elevated to comfort, Call light and fluids at bedside
--- NOTE | 2021-05-27 02:36 | NUR ---
Up to br, increased sob with exertion. Resp 32 on return. ,on room air. Voided, back to bed, tolerated fair, CPOX in place sats 96%, tele#[address] afib pulse went up to 136 on return from BR, down to 103 at this time. denies CP. back tobed, resp down to 24 as soon as she sat down on the bed. IVF infusing. tolerating fluids well. Cardizem 45mg po give, med ed done, cont to reinforce. fluids and call light at bedside
--- NOTE | 2021-05-27 05:20 | NUR ---
Pt awakens easily, no c/o pain or SOB. On room air, CPOX inplace. sats WNL, lungs dim sounds bilat. gets SOB with exertion. and when walking up to br, voided and on return started c/o increaed lightheadness, facial flush noted unsteady gait when earlier it was slow but steady. required 2pa to help back on return sats taken inmediately were WNL mid to high 90's%. Increaed resp rated noted and as soon as she sat in bed diminished to the 20-24. tele#10 afib rhythm. CBG on admit was 416 received scheduled 16 units semglee insulin. tolerating liquids well. no emesis, no c/o pain. edema to le, legs elevated.pleasant and coop
--- NOTE | 2021-05-27 06:20 | NUR ---
CALL LIGHT ANSWERED. 1 PA TO BEDSIDE COMMODE. PATIENT VOIDED 350CC. PATIENT IS BACK IN BED NOW. CALL LIGHT WITHIN REACH. ICE WATER REFILLED.
--- NOTE | 2021-05-27 07:22 | EKG ---
[facility] [address] [place] [address] Signed Atrial fibrillation with rapid ventricular response Septal infarct , age undetermined Abnormal ECG When compared with ECG of 20-APR-2019 12:36, Atrial fibrillation has replaced Sinus rhythm Vent. rate has increased BY [address] now depressed in Lateral leads Confirmed by CASIMIRO DOWNING MD ([id number]) on 05/27/2021 7:22:43 AM Electronically Signed By: CASIMIRO DOWNING MD 05/27/21 0722 PATIENT NAME: KAREN LAZARO Electrocardiogram DATE OF : 42 PHYSICIAN: CASIMIRO DOWNING MD REPORT #: [id number] REPORT IS CONFIDENTIAL AND NOT TO BE RELEASED WITHOUT AUTHORIZATION
--- NOTE | 2021-05-27 07:32 | NUR ---
RECEIVED REPORT FROM DAY SHIFT RN. PATIENT IS RESTING IN BED WITH EYES CLOSED, RR 19. CALL LIGHT IN REACH.
--- NOTE | 2021-05-27 07:54 | NUR ---
PATIENTS BS TAKEN AND AND FOUND TO BE ELEVATED. REPORTED ELEVATED BS TO MD. UNITS GIVEN PER ORDER. PATIENT GIVEN SS. PATIENT GIVEN BREAKFAST. NO FURTHER NEEDS NOTED. CALL LIGHT IN REACH.
--- NOTE | 2021-05-27 09:24 | NUR ---
PATIENT ASSESMENT COMPLETED. PATIENT DENIES ANY PAIN OR SOB. VITALS TAKEN AND RECORDED. PATIENT ASSISTED TO BS. PATIENT WAS ABLE TO VOID. PATIENT IS NOW BACK IN BED RESTING. PATIENT SOB W/ACTIVITY. PATIENTS MORNING MEDICATIONS GIVEN PER ORDER. PATIENT PROVIDED WITH FRESH ICE WATER. PATIENTS IV FLUIDS CHANGED PER MD. NEW FLUIDS INFUSING. NO FURTHER NEEDS NOTED. CALL LIGHT AND BELONGINGS ARE WITHIN REACH.
--- NOTE | 2021-05-27 09:54 | NUR ---
INTO PATIENT ROOM, PATIENT SLEEPING. PATIENT SNORING, DOES NOT WAKE TO VOICE. WILL RETURN TO COMPLETE ASSESSMENT WHEN PATIENT AWAKE.
--- NOTE | 2021-05-27 10:38 | NUR ---
PATIENT CALLED W/CONCERN OF IV PAIN. PATIENTS IV FLUSHED AND IS PATENT PER ORLANDO ESCOBAR RN. ORLANDO CORONA OFFERED TO START A NEW IV. PATIENT DECLINED. IV ABX SLOWED. PATIENT STATED THATS BETTER.
--- NOTE | 2021-05-27 10:40 | NUR ---
PATIENT IS RESTING IN BED WITH EYES CLSOED, RR 19. IV ABX IS COMPLETED. IV INFUSING. IV VISUALLY OBSERVED NO REDNESS OR SWELLING NOTED. CALL LIGHT IN REACH.
--- NOTE | 2021-05-27 11:47 | NUR ---
PATIENTS BS TAKEN PER ORDER. PATIENT GIVEN SS PER ORDER. PATIENTS LUNCH TRAY AT BEDSIDE. PATIENT UP TO RECLINER TO EAT LUNCH. NO FURTHER NEEDS NOTED. CALL LIGHT IN REACH.
[2021-05-27] MEDS ORDERED: TRIAMTERENE-HC1 EAC2 PO (12:03)
[2021-05-27] MEDS ORDERED: LOSARTAN POTAS100 MG PO (12:03)
[2021-05-27] MEDS ORDERED: ELIQUIS2.5 MG PO (12:05)
[2021-05-27] MEDS ORDERED: ADULT ASPIRIN R81 MG PO (12:06)
--- NOTE | 2021-05-27 12:11 | NUR ---
MED REC COMPLETE
--- NOTE | 2021-05-27 13:25 | NUR ---
PT ALERT, ORIENTED AND SITTING IN CHAIR. PT FEELING BETTER, FEELS AFIB CAUSED BY STRESS IN HER LIFE RIGHT NOW. HAS DEMENTIA, AND SHE IS HIS PCG. PT ADMITTED LIFE IS DIFFICULT. DEBRIEFED, OFFERED COMFORT. PT MENTIONED THAT GOD IS WATCHING OVER HER, REQUESTED PRAYER. WILL FOLLOW
--- NOTE | 2021-05-27 14:02 | NUR ---
PATIENT ASSISTED TO THE BSC A SBA. PATIENT WAS ABLE TO VOID. PATIENT IS BACK IN BED RESTING. PATIENTS INTAKE AND OUPUT RECORED. DURING CARE JENNIFER DIRECTOR AMBULATORY REPORTED CCU RN JULIENNE CALLED AND STATED PATIENT HAD WENT INTO AFIB AND HR INCREASED TO 130. SHE WAS NOT IN AFIB FOR LONG. VITALS TAKEN AND RECORDED AND ARE WNL. PATIENT STATED "WHEN I STOOD I FELT A WEIRD FEELING IN MY CHEST, BUT ITS GONE NOW". PATIENT DENIES ANY CHEST PAIN AT THIS TIME OR SOB. PATIENTS BLINDS CLOSED PER REQUEST. NO FURTHER NEEDS NOTED. CALL LIGHT IN REACH.
--- NOTE | 2021-05-27 18:02 | NUR ---
PATIENT CHAIR TO BEDSIDE COMMODE TO BED, SBA. VITALS AND I&O'S CHARTED. CALL LIGHT IN REACH AND NO FURTHER NEEDS AT THIS TIME.
--- NOTE | 2021-05-27 18:06 | NUR ---
PATIENTS BS CHECKED AND SS ADMINISTERED PER ORDER. PATIENT UP TO RECLINER EATING DINNER. NO NEEDS NOTED. CALL LIGHT IN REACH.
--- NOTE | 2021-05-27 19:15 | NUR ---
BESIDE REPORT RECEIVED FROM OFFGOING RNFRANKI. ICEWATER REFILLED PER PT REQUEST. PT DENIES FURTHER NEEDS. CALL LIGHT IN REACH.
--- NOTE | 2021-05-27 21:00 | NUR ---
PT ASSESSMENT COMPLETE. PT DENIES PAIN, NAUSEA, OR SOB AT THIS TIME. PT STATES THAT SHE IS FEELING MUCH IMPROVED THAN PREVIOUS NIGHT. TELE #8, SR. HR 80'S LUNG SOUNDS CLEAR THROUGHOUT, SA02 96% ON RA. NO SOB NOTED AFTER PT UP TO BATHROOM AND BACK TO BED. PT DENIES DYSURIA AT THIS TIME. IV FLUSHED, WNL AND PATENT. POWDER APPLIED TO UNDER PANUS, SLIGHT REDNESS, NO WEEPING NOTED. GENERALIZED EDEMA PRESENT TO BLE. PT DENIES FURTHER NEEDS AT THIS TIME. STATES THAT SHE WOULD LIKE TO GET TO SLEEP SOON. DENIES FURTHER NEEDS. CALL LIGHT LIGHT IN REACH.
--- NOTE | 2021-05-27 22:40 | NUR ---
REPORT FROM SRI RN, PT RESTING EYES CLOSED, NAD. CALL LIGHT IN REACH.
--- NOTE | 2021-05-28 01:14 | NUR ---
WENT IN TO THE ROOM TO CHANGE THE TELE BATTERY. PATIENT GOT UP TO THE BATHROOM. SBA. PATIENT IS BACK IN BED. ICE WATER REFILLED.
--- NOTE | 2021-05-28 02:06 | NUR ---
awakened pt from sound sleep for vitals and po med. call light in reach - denies needs.
--- NOTE | 2021-05-28 04:55 | NUR ---
pt call light in reach, resp rate regular, tele hr 70-80s.
--- NOTE | 2021-05-28 05:18 | NUR ---
critical lab value called in from lab, entered in book and called to Dr. pedro. repeat bc x2 and no lactic acid. charge aware.
--- NOTE | 2021-05-28 06:21 | NUR ---
awakened pt for am med and notified of repeat bc - lab is on the way. denies needs, plans for hopeful dc to home today.
--- NOTE | 2021-05-28 07:00 | NUR ---
Report received from Dina CORONA. Pt sitting up in chair, A+O, on RA. Tele #[address] Pt has no needs at this time, call light in reach.
--- NOTE | 2021-05-28 07:39 | NUR ---
PATIENT RESTING IN CHAIR. WHITE BOARD UPDATED. BATHROOM SET UP FOR INDEPENDENT AM CARE. CALL LIGHT IN REACH AND NO FURTHER NEEDS AT THIS TIME.
--- NOTE | 2021-05-28 07:58 | NUR ---
Scheduled medications administered, assessment complete. Pt sitting up in chair, reviewed plan of care to which she is agreeable. SS insulin and scheduled administered. Breakfast in room, pt has no other needs at this time. Call light in reach
--- NOTE | 2021-05-28 08:30 | NUR ---
IV leaking, new IV started in R wrist. This IV also began leaking, both DC'd. silver brazer in room to attempt start.
--- NOTE | 2021-05-28 09:00 | NUR ---
Spoke with Katie. She states she would like to go home today, she has not seen the DrTorri yet. Pt is sob when speaking with me at times. States she had covid a month ago and has had extreme fatigue. She feels she has been under stress with her spouse having dementia and son moving in to assist. She states her family have been bickering about everything and this has caused her concern. She denies needs to go home and would like to go as family have arrived to visit. She will discuss with MD. Cautioned to not leave to soon as this can lead to readmit.
--- NOTE | 2021-05-28 11:45 | NUR ---
CBG checked, 393, notified and SS and scheduled insulin provided.
--- NOTE | 2021-05-28 12:45 | NUR ---
PT REPORTED A GENERALIZED NOT FEELING WELL. PT APPEARED SOB. ASSESSED BS, 389 BUT PT HAD JUST EATEN. TELE, SR HR 84. ASSESSED ORTHOSTATICS AND CALLED DR ESPINOZA WITH NEGATIVE RESULTS. CONTINUE TO MONITOR
--- NOTE | 2021-05-28 13:41 | NUR ---
PT RESTING IN BED PLANNING TO NAP THIS AFTERNOON. CALL LIGHT WITHIN REACH NO FURTHER NEEDS AT THIS TIME.
--- NOTE | 2021-05-28 14:15 | NUR ---
PT IS HAVING AN ECHO AT THE MOMENT. WILL CHECK BACK
--- NOTE | 2021-05-28 16:27 | NUR ---
Pt walks in hallway with this RN and INSTRUCTIONAL TECHNOLOGY TEACHER with WC following. Pt remains in sinus rhythym with HR 80's-110. Pt able to talk during entire walk, slight SOB but pt states tolerable. Back to room and resting at this time
--- NOTE | 2021-05-28 16:50 | NUR ---
CBG checked, 187. Dinner to room. Pt has no needs
--- NOTE | 2021-05-28 17:09 | NUR ---
Insulin provided. Assessment complete. Pt sitting up in chair eating dinner, states feeling better this afternoon, states no needs at this time. Call light in reach.
--- NOTE | 2021-05-28 18:05 | NUR ---
PATIENT RESTING IN BED. VITALS AND I&O'S CHARTED. CALL LIGHT IN REACH AND NO FURTHER NEEDS AT THIS TIME.
--- NOTE | 2021-05-28 19:23 | NUR ---
RECEIVED REPORT FROM DAY SHIFT RN. PATIENT IS RESTING IN RECLINER WATCHING TV. PATIENT DENIES ANY NEEDS. CALL LIGHT IN REACH.
--- NOTE | 2021-05-28 20:23 | NUR ---
V/S AND I&O'S DONE. ASSISTED PRIMARY RN FRANKI WIPED UNDER BELLY FOLDS AND DRIED AND POWDER APPLIED BY RN.
--- NOTE | 2021-05-28 20:41 | NUR ---
PATIENT ASSESMENT COMPLETED. PATIENTS VITALS TAKEN AND RECORDED. INTAKE AND OUTPUT RECORDED. PATIENT DENIES ANY SOB OR PAIN. PATIENTS EVENING MEDICATIONS GIVEN PER ORDER. PATIENT HAD MULTIPLE QUESTIONS ABOUT HER HEART MEDICATION AND HER BLOOD THINNER. EDUCATION PROVIDED AND ALL QUESTIONS ANSWERED. PLACED A LIBRARY SERVICES DEAN CONSULT PATIENT WOULD BENEFIT FROM EDUCATION. PATIENT REPORTS NOT HAVING A BM FOR MULTIPLE DAYS. NIO PLACED FOR BOWEL CARE. PATIENT GIVEN MEDICATION PER ORDER. PATIENT DENIES ANY FURTHER NEEDS. CALL LIGHT AND BELINGING WITHIN REACH.
--- NOTE | 2021-05-28 23:02 | NUR ---
PATIENT IS RESTING IN BED WITH EYES CLSOED, RR 18. TELE #8 HR 80. CALL LIGHT IN REACH.
--- NOTE | 2021-05-29 01:56 | NUR ---
PATIENTS VITALS TAKEN AND RECORDED. PATIENTS SCHEDULED MEDICATIONS GIVEN PER ORDER. NO NEEDS NOTED. CALL LIGHT IN REACH.
--- NOTE | 2021-05-29 04:33 | NUR ---
PATIENT IS RESTING IN BED WITH EYES CLSOED, RR 19. CALL LIGHT IN REACH.
--- NOTE | 2021-05-29 06:25 | NUR ---
VITALS TAKEN AND RECORDED. INTAKE AND OUPUT RECORDED. PATIENTS MORNING MEDICATIONS GIVEN PER ORDER. PATIENT DENIES ANY NEEDS CALL LIGHT IN REACH.
--- NOTE | 2021-05-29 07:00 | NUR ---
Report received from Theodore CORONA. Pt resting with no needs at this time. Will continue plan of care
--- NOTE | 2021-05-29 07:28 | NUR ---
PATIENT RESTING IN BED. WARM WASHCLOTH PROVIDED AND WHITE BOARD UPDATED. CALL LIGHT IN REACH AND NO OTHER NEEDS AT THIS TIME. PRIMARY RN IN ROOM AT TIME OF EXIT.
--- NOTE | 2021-05-29 07:34 | NUR ---
Scheduled cardizem administered. Pt denies SOB, palpitations, reports feeling better in general today. Reviewed plan of care to increase activity, monitor symptoms and discuss medications, pt is agreeable. VSS, A+O, no needs at this time, call light in reach.
--- NOTE | 2021-05-29 08:05 | NUR ---
Medications administered, assessment complete. Pt sitting up in chair eating breakfast. Insulin provided, IV ABX infusing WNL. This RN and patient discussed medications cardizem and eliquis, diabetic compliance. Pt verbalizes understanding. No further needs at this time, call light in reach
--- NOTE | 2021-05-29 10:45 | NUR ---
Spoke with Nelsy. Dr. Torres in room, stating she may dc tomorrow or Thursday. She is stating concern as family cont. to call and attempt to include her in their bickering. This causes her stress. Dr. Torres suggesting she resume counseling to help her with family issues. Pt's family will transport on discharge.
--- NOTE | 2021-05-29 10:56 | NUR ---
PATIENT AMBULATE FROM CHAIR TO BATHROOM TO CHAIR, INDEPENDENTLY. VITALS AND I&O'S CHARTED, FRESH ICE PROVIDED. CALL LIGHT IN REACH AND NO FURTHER NEEDS AT THIS TIME.
--- NOTE | 2021-05-29 10:59 | NUR ---
DR ESPINOZA IN VISITING WITH PT, WILL CHECK BACK
--- NOTE | 2021-05-29 11:25 | NUR ---
Pt back from working with physical therapy, tele removed and IV lasix administered. Pt resting in chair, states thankful for Dr Torres.
--- NOTE | 2021-05-29 11:53 | NUR ---
CBG and insulin complete, pt sitting up in chair eating lunch at this time, states no needs. Housekeeping Laundry Worker enters room at this time.
--- NOTE | 2021-05-29 12:11 | NUR ---
RD and international flight attendant visited patient at bedside. Patient was eating lunch and states her appetite has improved. Patient is very fond of the hospital cafeteria food. Patient does not count carbohydrates at home, but would like to lose weight. RD emphasized consumption of fresh fruits and vegetables, not eat after dinner, and consistent consumption of breakfast. Patient states she does not consume food after 6pm. No other nutrition intervention at this time. Will continue to monitor.
--- NOTE | 2021-05-29 14:18 | NUR ---
PT ALERT, ORIENTED AND SITTING IN CHAIR. ADMISSION TO [facility] HAS BEEN A VERY POSITIVE TIME FOR HER PHYSICALLY, MENTALLY AND SPIRITUALLY. PT STATED THAT TODAY HAS BEEN A VERY GOOD DAY. P.T. WITH JANENE, HOT SHOWER AND TIME WITH DR ESPINOZA HAS MADE A BIG DIFFERENCE IN HER. PT HAD QUESTIONS ABOUT GOD, LIFE AND HIS FAITHFULNESS. HAD PRAYER WITH PT, GAVE G.POST AND WILL FOLLOW
--- NOTE | 2021-05-29 16:50 | NUR ---
Scheduled and SS insulin provided, dinner provided and pt sitting up in chair watching TV. Pt states feeling well, has no complaints or needs. Receives phone call as this RN exits. call light in reach.
--- NOTE | 2021-05-29 18:15 | NUR ---
Pt doing well this shift, A+O, VSS, on RA. Saline locked. SBA/independent in room. IV ABX and lasix, PO cardizem and eliquis adminstered for tx. SS insulin and lantus provided. pt has no pain. Voiding quantity sufficient, tolerating diet. Calls appropriately.
--- NOTE | 2021-05-29 19:05 | NUR ---
BEDSIDE REPORT RECEIVED FROM CJ ENAMORADO. pt SITTING UP IN CHAIR WATCHING TV. NO REQUESTS AT THIS TIME. pt IN GOOD SPIRITS STATES "I FEEL SO MUCH BETTER". CALL LIGHT IN REACH.
--- NOTE | 2021-05-29 20:59 | NUR ---
pt RESTING IN BED CBG 259, SS INSULIN ADMINSITERED ORDERED. pt ALERT AND ORIENTED TO ALL. IV SITE FLUSHED WNL, SL. HR REGULAR RHTYHM. LUNG SOUNDS CLEAR. 1+ EDEMA BLE. CSM INTACT. pt DENIES SOB. VSS. RA. CALL LIGHT IN REACH. ICE WATER PROVIDED. LIGHTS OFF IN ROOM.
--- NOTE | 2021-05-29 23:06 | NUR ---
CHECKED ON pt. RESTING IN BED ON RIGHT SIDE, SNORING, EYE MASK IN PLACE. LIGHTS OFF IN ROOM.
--- NOTE | 2021-05-30 00:39 | NUR ---
CHECKED ON pt. RESTING IN BED ON BACK. EYE MASK ON. BREATHING UNLABORED. LIGHTS OFF IN ROOM.
--- NOTE | 2021-05-30 03:26 | NUR ---
pt RESTING IN BED ON RIGHT SIDE. BREATHING EQUAL AND UNLABORED. EYE MASK ON.
--- NOTE | 2021-05-30 06:14 | NUR ---
pt AWAKE AFTER VALVE TECHNICIAN IN ROOM FOR LAB DRAW. INDEPENDENT TO RESTROOM FOR VOID AND BACK TO BED. ASSESSMENT COMPLETE. VSS. HR REGULAR RHTYHM. pt IS CONCERNED THAT SHE HAS NOT HAD "A REAL GOOD BOWEL MOVEMENT". DISCUSSED ADDITIONAL MEDICAITON REGIMEN, pt REQUESTING ADDITIONAL MEDICATIONS. BOWEL TONES HYPOACTIVE X 4, ABD SOFT, NON-TENDER. ICE WATER PROVIDED. CALL LIGHT IN REACH.
--- NOTE | 2021-05-30 07:45 | NUR ---
REPORT RECEIVED FROM NIGHT RN AND PT. CARE RESUMED. PT. IS ALERT, ORIENTED AND UP IN THE CHAIR. SHE DENIES PAIN. PT. REPORTS HAVING A SMALL BM YESTERDAY, BUT IS CONCERNED SHE DID NOT HAVE A SUBSTANTIAL BM SINCE THURSDAY. ADMIN. S[place]OT AND MIRALAX AND WILL CONTINUE TO MONITOR. FINE CRACKLES PRESENT IN RLL. TRACE EDEMA PRESENT BLE. BLOOD GLUCOSE WAS 190 AND INSULINS ADMIN. HR REGULAR. DISCUSSED POC AND MEDS. PT. LEFT EATING BREAKFAST WITH CALL LIGHT IN REACH.
--- NOTE | 2021-05-30 09:45 | NUR ---
Spoke with Nelsy. She plans on dc today to home. She has not discussed this with the Dr. ralph. She states she has most everything she needs at home. Would benefit from a shower chair and will go to [employer] to get a loaner. She is low income, but does not qualify for medicaid. She uses the [employer] and [employer]. Son and grandson live with her and spouse who has dementia and provide care. Pt continues to drive, but states family do not think she should. She is feels she is safe for dc to home with family and denies further needs.
[2021-05-30] MEDS ORDERED: DILTIAZEM 24HR240 M1 PO (13:06)
[2021-05-30] MEDS ORDERED: ESCITALOPRAM OX10 MG PO (13:07)
[2021-05-30] MEDS ORDERED: AMLODIPINE BES2.5 MG PO (13:08)
[2021-05-30] MEDS ORDERED: NOVOLIN 70100 UNIT/1 SUB-Q (13:08)
[2021-05-30] MEDS ORDERED: PROBIOTIC1 EAC3 PO (13:10)
[2021-05-30] MEDS ORDERED: AMOX TR-K CLV1 EACH PO (13:10)
--- NOTE | 2021-05-30 13:10 | NUR ---
Notified by Dr. Torres he plans to dc pt to home with HH for PT/OT. Called [facility] to clarify if they cont. to service [facility] and they do. Updated I will fax the chart when orders and F2F complete. In and spoke with Katie. Updated is ordering HH and [facility] is the only agency which services [place]. She is aware and has used [facility] in the past. There was an issue with their RN and they do not want her to return, discussed the Dr is ordering PT/OT and she states this is fine. NOtified [facility] will call and schedule and appt with her. Brochure for [facility] given.
[2021-05-30] MEDS ORDERED: TORSEMIDE10 MG PO (13:11)
--- NOTE | 2021-05-30 13:37 | NUR ---
CONNECTED WITH PT SHE WAS AMBULATING IN HALLWAY WITH Leona WATTERS. PT WAS JUST FINISHING UP A TREATMENT, FEELING GOOD ABOUT TODAY'S ACCOMPLISHMENTS. GAVE ENCOURAGEMENT AND CHALLENGE TO CONTINUE WORKING UNDER JANENE'S GREAT GUIDANCE. BLESSING ALSO GIVEN. WILL FOLLOW NEEDED
--- NOTE | 2021-05-30 14:30 | NUR ---
Faxed face sheet, dc summary, h&P, HH signed order, PT/OT notes and eval to Domitila at [facility].
--- NOTE | 2021-05-30 15:03 | NUR ---
ALL DISCHARGE INSTRUCTIONS REVIEWED WITH PATIENT AND QUESTIONS ANSWERED. IV REMOVED WITH CATH. INTACT. VITALS STABLE AND PT.DENIES PAIN AND SOB. PT. LEFT WITH ALL BELONGINGS VIA WHEELCHAIR WITH STAFF AND GRANDSON.
== END 2021-05-30 15:07 | disposition home health service (06) | DRG 308 ==
LOC: ED 20:14 → MS 20:15
PROVIDERS: ADMIT Internal Medicine; ATTEND Internal Medicine
DX: I48.0 Paroxysmal atrial fibrillation (principal); A41.51 Sepsis due to Escherichia coli [E. coli]; R65.20 Severe sepsis without septic shock; I50.33 Acute on chronic diastolic (congestive) heart failure; N30.00 Acute cystitis without hematuria; E87.1 Hypo-osmolality and hyponatremia; F33.9 Major depressive disorder, recurrent, unspecified; I13.0 Hypertensive heart and chronic kidney disease with heart failure and stage 1 through stage 4 chronic kidney disease, or unspecified chronic kidney disease; N18.4 Chronic kidney disease, stage 4 (severe); K59.00 Constipation, unspecified; E11.65 Type 2 diabetes mellitus with hyperglycemia; E03.9 Hypothyroidism, unspecified; E11.22 Type 2 diabetes mellitus with diabetic chronic kidney disease; I35.0 Nonrheumatic aortic (valve) stenosis; Z86.16 Personal history of COVID-19; Z88.8 Allergy status to other drugs, medicaments and biological substances; Z79.899 Other long term (current) drug therapy; Z79.4 Long term (current) use of insulin
CPT/HCPCS: 71045; 76775; 80048; 80053; 81001; 83605; 83735; 84443; 84484; 85007; 85025; 93005; 93010; 93306; 96365; 96375; 96376; 97110; 97116; 97162; 97165; 97535; 99285-25; A9270; J0456; J0696; J1650; J1815; J1940; J7030; J7060; J7121; U0003

== ENCOUNTER 2022-09-05 13:50 | Emergency (ER) | payer MEDICARE ==
[~2022-09-05] VITALS: Ht 165.1 cm; Wt 105.4 kg
[~2022-09-05 13:50] MED LIST changes: +ADULT ASPIRIN R81 MG PO; +AMLODIPINE BES2.5 MG PO; +AMOX TR-K CLV1 EACH PO; +DILTIAZEM 24HR240 M1 PO; +ELIQUIS2.5 MG PO; +ESCITALOPRAM OX10 MG PO; +LOSARTAN POTAS100 MG PO; +PROBIOTIC1 EAC3 PO; +TORSEMIDE10 MG PO; +TRIAMTERENE-HC1 EAC2 PO
--- NOTE | 2022-09-05 18:02 | EKG ---
[facility] [address] [place], [place] [address] Signed Sinus rhythm with 1st degree AV block Septal infarct , age undetermined T wave abnormality, consider lateral ischemia Abnormal ECG No previous ECGs available Confirmed by CASIMIRO DOWNING MD ([id number]) on 09/05/2022 6:02:30 PM Electronically Signed By: CASIMIRO DOWNING MD 09/05/221801 PATIENT NAME: KAREN LAZARO Electrocardiogram DATE OF : 42 PHYSICIAN: CASIMIRO DOWNING MD REPORT #: [id number] REPORT IS CONFIDENTIAL AND NOT TO BE RELEASED WITHOUT AUTHORIZATION
[2022-09-05] MEDS ORDERED: ONDANSETRON ODT8 MG PO (18:58)
[2022-09-05] MEDS ORDERED: CEPHALEXIN500 M1 PO (18:58)
== END 2022-09-05 19:11 | disposition home or self-care (01) ==
LOC: ED 13:50
DX: N39.0 Urinary tract infection, site not specified (principal); R53.81 Other malaise; E11.9 Type 2 diabetes mellitus without complications; I10 Essential (primary) hypertension; E03.9 Hypothyroidism, unspecified; I48.91 Unspecified atrial fibrillation; Z88.8 Allergy status to other drugs, medicaments and biological substances; Z88.6 Allergy status to analgesic agent; Z79.899 Other long term (current) drug therapy; Z79.4 Long term (current) use of insulin; Z79.01 Long term (current) use of anticoagulants; Z20.822 Contact with and (suspected) exposure to COVID-19
CPT/HCPCS: 36415; 71045; 80053; 81001; 83735; 84484; 85025; 87077; 87088; 87186; 87502; 93005; 93010; 96365; 96375; 99285-25; A9270; C9803; J0696; J1885; U0003

== ENCOUNTER 2022-11-09 11:52 | Emergency (ER) | payer MEDICARE ==
[~2022-11-09] VITALS: Ht 165.1 cm; Wt 104.5 kg
[~2022-11-09 11:52] MED LIST changes: +CEPHALEXIN500 M1 PO; +ONDANSETRON ODT8 MG PO
[2022-11-09] MEDS ORDERED: MECLIZINE HCL25 MG PO (15:00)
--- NOTE | 2022-11-10 21:54 | EKG ---
[facility] [address] [place] [address] Signed Sinus rhythm with 1st degree AV block with premature atrial complexes Septal infarct (cited on or before 26-MAY-2021) T wave abnormality, consider lateral ischemia Abnormal ECG When compared with ECG of 05-SEP-2022 13:48, premature atrial complexes are now present T wave inversion more evident in Lateral leads Confirmed by Kumar Sexton MD () on 11/10/2022 9:54:31 PM Electronically Signed By: KUMAR SEXTON MD 11/10/22 2154 PATIENT NAME: KAREN LAZARO Electrocardiogram DATE OF : 42 PHYSICIAN: KUMAR SEXTON MD REPORT #: [id number] REPORT IS CONFIDENTIAL AND NOT TO BE RELEASED WITHOUT AUTHORIZATION
== END 2022-11-09 15:10 | disposition home or self-care (01) ==
LOC: ED 11:52
DX: R42 Dizziness and giddiness (principal); E11.9 Type 2 diabetes mellitus without complications; I10 Essential (primary) hypertension; E03.9 Hypothyroidism, unspecified; I48.91 Unspecified atrial fibrillation; Z88.8 Allergy status to other drugs, medicaments and biological substances; Z88.6 Allergy status to analgesic agent; Z79.899 Other long term (current) drug therapy; Z79.4 Long term (current) use of insulin; Z79.01 Long term (current) use of anticoagulants; Z20.822 Contact with and (suspected) exposure to COVID-19
CPT/HCPCS: 36415; 80053; 83735; 84484; 85025; 87502; 93005; 93010; 99284-25; A9270; U0003